=== PATIENT | female | born 1970 | race Caucasian/White ===

== ENCOUNTER 2021-06-24 00:32 | Day surgery (SDC) | payer OTHER, SELFPAY ==
[2021-06-20 12:03] VITALS: BMI 29.1
--- NOTE | 2021-06-20 12:13 | PC.NURSE ---
Report to the Outpatient Waiting Room, entrance under the green pavilion located off [facility], at time 1130 on date 06/24/21. OR Time: 1330. - You and your visitor will be asked a series of questions to screen for COVID 19 for your protection. - A mask is required within the hospital. One visitor will be allowed to accompany the patient into the hospital. Patients visitor will be instructed to remain with patient at all times or leave the building. We will allow the visitor to come back to the postoperative area when patient is ready. Preoperative COVID Testing Requirements: No COVID Test needed if: (proof is required; if not received patient will have Rapid Test prior to entry) - Patient has received COVID Vaccine at least 14 days prior to procedure date or - Patient has positive COVID test result within last 90 days of surgery date. COVID Test needed if above criteria is not met Patients may have clear liquids (water, carbonated beverages, clear teas, apple juice) until 3 hours prior to surgery with a maximum of 20 ounces. - No food from midnight until time of surgery Take the following medications with a SIP of water the morning of surgery: VENLAFAXINE Medications to discontinue per physician: N/A Date to take last dose: N/A Please no make-up, nail georgian, hairspray, perfume, deodorant, or body powder the day of surgery. No jewelry (including any body piercings) or valuables the day of surgery, leave them at home. Please take a shower or bath the night before, or the morning of, surgery with an antibacterial soap. Wear comfortable, loose fitting clothing. - Jewelry must be removed prior to entering the operating room. Rings and piercings that are not removed may be cut off. - The hospital will not accept responsibility for valuables. - Please leave all valuables, including medications, at home the day of surgery. If you are going home after surgery, a licensed driver salesman must drive you home. - NO public transportation without another adult. - We recommend that an adult stay with you for 24 hours following discharge. - We also recommend that you do not drive, make important decision, drink alcoholic beverages, or take any drugs that were not prescribed by your health care provider for at least 24 hours after your discharge time. Follow any additional instructions given to you from your surgeon. Telephone instructions given to ARABELLA MELTON and asked if any additional questions and then verbalized understanding. Patient advised to call surgeon office or pre surgery nurse liaison [phone] if any additional questions.
[2021-06-24] VITALS (7 sets, daily range): BP systolic 123–144; BP diastolic 73–91; PULSE 101–114; RESP 12–20; TEMP 36.4–36.8; O2SAT 95–100
--- NOTE | 2021-06-24 11:39 | WPDANESEPPF ---
Anes - Initial Pre Proc Eval Procedure: Operation Date: 06/24/21 13:30 Proposed Procedures p Bilateral Breast Implant Exchange - Lenard Garcia MD s Bilateral Breast Fat Grafting - Lenard Garcia MD Date/Time: 06/24/21 11:39 Surgeon: Lenard Garcia MD Pre Op Diagnosis: Hx of Breast Cancer Patient Data Age: 50 Gender: F Height: 1.65 m Weight: 79.38 kg Allergies Allergy/AdvReac Type Severity Reaction Status Date / Time morphine Allergy Rash Verified 06/20/21 12:02 Penicillins Allergy Vomiting Verified 06/20/21 12:02 Home Medications Medication Instructions Recorded Confirmed Type amlodipine 5 mg tablet 5 mg PO HS tablet 01/31/21 06/20/21 History metoprolol tartrate 25 mg tablet 12.5 mg PO HS tablet 01/31/21 06/20/21 History venlafaxine 75 mg capsule,extended 75 mg PO DAILY 01/31/21 06/20/21 History release 24 hr docusate sodium 100 mg capsule 100 mg PO DAILY #14 cap 06/13/21 06/20/21 Rx hydrocodone 5 mg-acetaminophen 325 1 tablet PO Q6H PRN #30 tablet 06/13/21 06/20/21 Rx mg tablet ondansetron 4 mg disintegrating 4 mg PO Q8H #21 tablet 06/13/21 06/20/21 Rx tablet Patient hx anesthesia problems: post op nausea/vomiting Family hx anesthesia problems: none Results Review: All pre-operative results and documents have been reviewed as part of the pre-operative evaluation. [facility] [place] Past Medical History Medical History Anxiety History of breast cancer 2003 Hypertension Surgical History Surgical History History of bilateral mastectomy 2003 History of knee surgery ACL/menisus Social History Social History Smoking status: Never smoker Alcohol intake: current Drinks per week: 3 Substance use: never Substance use type: does not use Living arrangements: with family Spiritual care concerns: No Anes - Eval Final PreProcedure Day of Procedure 06/24/21 11:39 Patient weight: overweight Heart: regular rate and rhythm Lungs: clear to auscultation Airway: Mallampati scale class II Neurological: alert and oriented Last oral intake: >/= 8 hours ASA classification: III Emergent: no Anesthetic plan: proceed Anesthesia type and monitoring: general LMA and standard monitoring Results Review: All pre-operative results and documents have been reviewed as part of the pre-operative evaluation. Informed Consent: The patient's anesthetic plan and its attendant risks and benefits were discussed with the patient/family/POA. Questions were solicited and answers provided to the satisfaction of the patient/family/POA.
[2021-06-24] MEDS: LACTATED RINGERS 1,000 ML 30 ML IV CONT ×2 (11:40→14:23)
--- NOTE | 2021-06-24 11:49 | ECG_ITS ---
Measurements Intervals [place] Rate: 78 P: 49 UT: 162 QRS: 31 QRSD: 81 T: 47 QT: 360 QTc: 412 Interpretive Statements SINUS RHYTHM NORMAL ECG NO PREVIOUS ECG AVAILABLE FOR COMPARISON Electronically Signed On 06-24-2021 14:39:46 CDT by Duy Stinson M.D.
--- NOTE | 2021-06-24 11:57 | WPDHPUPDATE1 ---
History and Physical Update Update Date/Time: 06/24/21 11:57 History and Physical has been reviewed, including an updated exam of the patient. There are NO changes in the patient's condition. Risks, benefits, and alternatives have been discussed and questions answered. Patient agrees to proceed with procedure.
--- NOTE | 2021-06-24 11:59 | P.OP_ITS ---
Procedure Note - Detailed Date of Procedure 06/24/21 Pre-op Diagnosis Acquired breast deformity Hx of Breast Cancer Post-op Diagnosis Same Procedure Performed 1. Bilateral breast implant exchange (right intact, left ruptured) 2. Right breast fat grafting 150 cc 3. Left breast fat grafting 150 cc Surgeon Lenard Garcia MD Anesthesia General Findings Right breast implant intact. Left breast implant ruptured. Description of Procedure Preoperatively the risks, benefits, alternatives were discussed in extensive detail. I wanted her to be very realistic about the risks involved as well as expectations. She was accompanied by her . All questions were answered to their satisfaction. Consent was obtained. She was marked in the preoperative holding area with her verification. We did discuss her goals. She was taken to the operating room placed supine on the operating room table. Anesthesia by anesthesiology and prepped and draped standard fashion. Surgical time-out was taken. Thorough abdominal examination was completed in stab incision was made. I tumesced with a tumescent solution waited for adequate time for hemostasis. A 3 mm multi hole cannula was utilized and suction lipectomy completed of the abdomen to a gravity separation device to isolate the adipose tissue. I removed the central adipose tissue was used after adequate time for gravity separation. Also completed harvest from lateral chest excess adiposity. The port site was closed with 4-0 nylon. Stab incision was made the breast and then utilizing a 3 mm basket cannula infiltrated adipose tissue in multiple planes and passes in the volumes as described above. This access site was closed with 4-0 nylon. Fifteen blade used to make an excision of the previous scar. She understands this may change the contour of her tattooed areola as and she states she was already planning on revising these and is not concerned about the areola appearance. Dissection was continued down to the implant was identified these were removed. I then copiously irrigated with more than 3 L of saline solution on TUR tubing. Left side was ruptured. Irrigated with dilute peroxide and then again 3 liters of saline solution on TUR after changing gown, gloves, and inst ruments. I then copiously irrigated with triple antibiotic Betadine solution. Using a no-touch technique and a Riley funnel the implants are introduced into the pocket. This was closed with 2-0 Vicryl followed by 3-0 Strattafix and a running subcuticular 4-0 Monocryl. Tissue glue for final closure. Estimated Blood Loss 25 Drains No Packing No Pathology None sent Complications No immediate complications Condition Stable Disposition PACU
[2021-06-24 12:02] LABS: Urine Cotinine NEGATIVE
[2021-06-24] MEDS: TRANEXAMIC ACID 1,000MG/ISO100 1,000 MG/100 ML BAG 200 MG IVPB (12:15)
[2021-06-24] MEDS: SCOPOLAMINE 1.5 MG PATCH TRANSDERM (12:15)
[2021-06-24] MEDS: fentaNYL CITRATE INJ (*CRX) 100 MCG/2 ML VIAL 25 MCG IV PUSH ×2 (14:38→14:45)
[2021-06-24] MEDS: oxyCODONE HCL (*CRX) 5 MG TAB IR PO (15:14)
== END 2021-06-24 16:01 | disposition home or self-care (01) ==
PROVIDERS: PCP Internal Medicine; Visit Provider Surgery Plastic and Reconstructive Surgery
PROC: (CPT 19380; principal; 2021-06-24 13:30)
PROC: (CPT 15769; 2021-06-24 13:30)
DX: T85.41XA Breakdown (mechanical) of breast prosthesis and implant, initial encounter (principal); Z85.3 Personal history of malignant neoplasm of breast; Z90.13 Acquired absence of bilateral breasts and nipples; I10 Essential (primary) hypertension; F41.9 Anxiety disorder, unspecified; Y83.8 Other surgical procedures as the cause of abnormal reaction of the patient, or of later complication, without mention of misadventure at the time of the procedure
CPT/HCPCS: 19380; 80307; 93005; A9270; J0171; J1100; J1170; J1580; J2250; J2405; J2704; J3010; J7120